=== PATIENT | female | born 1990 | race Caucasian/White ===

== ENCOUNTER → 2019-05-08 | Outpatient (CLI) | payer SELFPAY | END | disposition home or self-care (01) | PROVIDERS: Visit Provider Obstetrics & Gynecology | DX: Z12.4 Encounter for screening for malignant neoplasm of cervix (principal); Z11.3 Encounter for screening for infections with a predominantly sexual mode of transmission; Z34.81 Encounter for supervision of other normal pregnancy, first trimester ==

== ENCOUNTER → 2019-06-06 10:24 | Outpatient (CLI) | payer SELFPAY ==
[2019-06-06 10:51] LABS: Absolute Lymphocyte Count 2.02 X10^3/uL (0.83-4.51); Basophil# 0.01 X10^3/uL; Basophil% 0.2 % (0-1); Eosinophil# 0.05 X10^3/uL; Eosinophils% 0.8 % (0-5); Hematocrit 36.2 % (37-47); Hemoglobin 11.4 g/dL (12.0-15.0); Lymphocyte # 2.02 X10^3/ul (4.0); Lymphocyte % 31.3 % (19-41); Mean Corp Hgb Conc 31.5 g/dL (32-36); Mean Corpuscular Hgb 23.2 pg (27.0-32.0); Mean Corpuscular Volume 73.6 fL (81-99); Mean Platelet Vol. 10.1 fl (6.2-12.0); Monocyte# 0.34 X10^3/uL; Monocyte% 5.3 % (0-10); NRBC Flagged by Analyzer 0 % (0-5); Neutrophil # 4.03 X10^3/uL (2.7-7.7); Neutrophil % 62.2 % (47-70); Platelet Count 249 K/mm3 (150-450); RBC Distribution Width CV 15.8 % (11.6-14.6); RBC Distribution Width SD 41.1 fl (35.1-43.9); Red Blood Count 4.92 M/mm3 (4.2-5.4); White Blood Count 6.5 K/mm3 (4.4-11.0)
[2019-06-06 10:52] LABS: Color, Urine Yellow (Yellow); Glucose, Dipstick Normal (Normal); Ketone-Dipstick Negative (Negative); Leukocyte Esterase-Dipstick Negative /ul (Negative); Nitrite-Dipstick Negative (Negative); Occult Blood-Urine Negative /ul (Negative); Protein-Dipstick Negative (Negative); Specific Gravity, Urine 1.005 (1.002-1.030); Urine Bilirubin Dipstick Negative (Negative); Urine Clarity Clear (Clear); Urine Urobilinogen Normal (Normal)
[2019-06-06 11:11] LABS: Amphetamine Urine VISTA NEGATIVE (<1000 ng/mL); Barbiturate Urine VISTA NEGATIVE (< 200 ng/mL); Benzodiazepine Urine VISTA NEGATIVE (< 200 ng/mL); Cocaine Urine VISTA NEGATIVE (< 300 ng/mL); Ecstacy Urine VISTA NEGATIVE (< 500 ng/mL); Methadone Urine VISTA NEGATIVE (< 300 ng/mL); PCP Urine VISTA NEGATIVE (< 25 ng/mL); THC Urine VISTA NEGATIVE (< 50 ng/mL); Vista UDS pH Range 6
[2019-06-06 12:28] LABS: HIV - WCH Non-Reactive (Nonreactive); Hepatitis B Surface Antigen Non-Reactive (Nonreactive); Hepatitis C Antibody Non-Reactive (Nonreactive)
[2019-06-13 02:09] LABS: Prenatal RPR NONREACTIVE (NONREACTIVE)
== END ==
PROVIDERS: Visit Provider Obstetrics & Gynecology
DX: Z34.81 Encounter for supervision of other normal pregnancy, first trimester (principal)
CPT/HCPCS: 36415; 80307; 81002; 82306; 84443; 85025; 86703; 86762; 86803; 87340

== ENCOUNTER → 2019-10-02 09:54 | Outpatient (CLI) | payer SELFPAY ==
[2019-10-02 11:35] LABS: Glucose Challenge Gest 1H 50g 99 mg/dL (70-140)
[2019-10-02 11:36] LABS: Hematocrit 33.3 % (37-47); Hemoglobin 10.4 g/dL (12.0-15.0); Mean Corp Hgb Conc 31.2 g/dL (32-36); Mean Corpuscular Hgb 25.4 pg (27.0-32.0); Mean Corpuscular Volume 81.4 fL (81-99); Platelet Count 270 K/mm3 (150-450); RBC Distribution Width CV 15.5 % (11.6-14.6); RBC Distribution Width SD 45.8 fl (35.1-43.9); Red Blood Count 4.09 M/mm3 (4.2-5.4); White Blood Count 8.8 K/mm3 (4.4-11.0)
[2019-10-02 11:44] LABS: Vitamin D,25 Hydroxy 33.9 ng/mL
== END ==
PROVIDERS: Visit Provider Obstetrics & Gynecology
DX: Z34.83 Encounter for supervision of other normal pregnancy, third trimester (principal)
CPT/HCPCS: 36415; 82306; 82950; 85027

== ENCOUNTER → 2019-11-22 | Outpatient (CLI) | payer SELFPAY | END | disposition home or self-care (01) | LOC: LABSPEC 10:27 | PROVIDERS: Visit Provider Obstetrics & Gynecology | DX: Z36.85 Encounter for antenatal screening for Streptococcus B (principal) | CPT/HCPCS: 87081 ==

== ENCOUNTER → 2019-12-04 10:00 | Outpatient (CLI) | payer MEDICAID, SELFPAY | PROVIDERS: PCP Family Medicine; Referring Provider Student in an Organized Health Care Education/Training Program; Visit Provider Student in an Organized Health Care Education/Training Program | DX: Z11.59 Encounter for screening for other viral diseases (principal) | CPT/HCPCS: 87635; C9803; U0003 ==

== ENCOUNTER 2019-12-10 09:25 | Inpatient (IN) | payer MEDICAID, SELFPAY ==
[2019-12-10] VITALS (21 sets, daily range): BP systolic 90–105; BP diastolic 36–73; PULSE 58–83; RESP 16–18; TEMP 36.1–36.8; O2SAT 95–100; BMI 40.9
[2019-12-10] MEDS: Acetaminophen 500 MG Tablet 1000 MG PO ×3 (09:54→23:53)
[2019-12-10] MEDS: Lactated Ringers 1,000 ML 999 ML IV (10:10)
[2019-12-10 10:36] LABS: Absolute Lymphocyte Count 1.74 X10^3/uL (0.83-4.51); Absolute Neutrophil Count 6.3 X10^3/uL (2.0-7.7); Basophil# 0.02 X10^3/uL; Basophil% 0.2 % (0-1); Eosinophil# 0.04 X10^3/uL; Eosinophils% 0.5 % (0-5); Hematocrit 35.4 % (37-47); Hemoglobin 11.5 g/dL (12.0-15.0); Lymphocyte # 1.74 X10^3/ul (4.0); Lymphocyte % 20.4 % (19-41); Mean Corp Hgb Conc 32.5 g/dL (32-36); Mean Corpuscular Hgb 26.7 pg (27.0-32.0); Mean Corpuscular Volume 82.3 fL (81-99); Mean Platelet Vol. 10.8 fl (6.2-12.0); Monocyte# 0.36 X10^3/uL; Monocyte% 4.2 % (0-10); NRBC Flagged by Analyzer 0 % (0-5); Neutrophil # 6.32 X10^3/uL (2.7-7.7); Neutrophil % 74.2 % (47-70); Platelet Count 191 K/mm3 (150-450); RBC Distribution Width CV 16.6 % (11.6-14.6); RBC Distribution Width SD 49.6 fl (35.1-43.9); White Blood Count 8.5 K/mm3 (4.4-11.0)
[2019-12-10] MEDS: Lactated Ringers 1,000 ML 150 ML IV (11:11)
--- NOTE | 2019-12-10 11:14 | NURSING ---
This assessment is prior to scheduled csection assessment of patient. FHR doppler on assessment 148BPM.
[2019-12-10] MEDS: Sodium Citrate/Citric Acid 30 ML UDC PO (11:54)
[2019-12-10] MEDS: Cefazolin 2 GM in 0.9% Normal Saline 100 ML IV (12:08)
--- NOTE | 2019-12-10 12:15 | PCM.HP.OB ---
- Problem List (1) 39 weeks gestation of Status: Acute History Date of Admission: 12/10/19 Final MAYRA: 12/17/19 Final MAYRA Source: US <20 weeks Gestational age: 41 Weeks and 6 Days History of this : This is a 29 year-old, G [], P [], at 39 weeks gestational age. Surgical History: Surgical History (Last Updated 12/10/19 @ 12:[address] Sayra Hobbs MD) Previous section Z98.891 Allergies No Known Allergies Allergy (Verified 12/10/19 09:36) Home Medications: Home Medications Aspirin [Aspirin EC] 81 mg PO DAILY 12/10/19 Vit No.130/Iron/Folic [ Tablet] 1 ea PO DAILY 12/10/19 Smoking Status: Never smoker Alcohol: None History Past Pregnancies: Past Pregnancies Delivery Date Name GA/ Weeks Outcome Route Wt Sex Labor Length Anesthesia Delivery Location FOB 11/2015 42 Arrest of descent, PPH, PRBC 8lb9oz M 26 Epidural [facility] Labs: Mom's Problem List Problem Status Onset Code 39 weeks gestation of Acute Z3A.39 Mom's Labs & Results 12/10/19 12/10/19 10:10 10:10 WBC 8.5 RBC 4.30 Hgb 11.5 L Hct 35.4 L MCV 82.3 MCH 26.7 L MCHC 32.5 RDW Std Deviation 49.6 H RDW Coeff of Bubba 16.6 H Plt Count 191 MPV 10.8 Immature Gran % (Auto) 0.500 Neut % (Auto) 74.2 H Lymph % (Auto) 20.4 [place] % (Auto) 4.2 Eos % (Auto) 0.5 Baso % (Auto) 0.2 Absolute Neuts (auto) 6.3 Absolute Lymphs (auto) 1.74 Nucleated RBC % 0 Blood Type O POSITIVE Antibody Screen NEGATIVE Course Did the patient receive Yes care? Labs Blood Type: O RH: POSITIVE RPR/VDRL/Syphilis Nonreactive Rubella status Immune HbSAg Negative Date Done: 06/06/19 Chlamydia Negative Gonorrhea Negative HIV/AIDS Non-Reactive Group B Strep: Negative Current Obstetrical History Gestational Diabetes No Incompetent Cervix No Infertility No IUGR No Macrosomia No Hypertension/Pre-eclampsia No Placenta Previa/Abruption No PTL/PROM No Uterine anomaly No Oligohydramnios No Polyhydramnios No Multiple gestation No Past Medical History Asthma No Diabetes No Hypertension No Heart disease No Mitral valve prolapse No Neurologic/Seizure disorder/ No Migraines Kidney disease No Liver disease No Varicosities No Clotting disorders/Hx of DVT No Thyroid Dysfunction No Other medical diseases No Psychiatric disorders No Major trauma No Abnormal PAP smear No Sleep apnea No Mammogram in the last 2 years No Social History Marital Status: Alleged father Garrick Hx Smoking No Smoking Status Never smoker Expected Delivery Method: Scheduled Section Number of Visits: 11 Physical Exam Vitals: Vital Signs Temp Pulse Resp BP Pulse Ox 97.2 F L 83 16 105/69 95 12/10/19 10:39 12/10/19 10:39 12/10/19 10:39 12/10/19 10:39 12/10/19 10:39 General: Alert, Oriented x3, Cooperative, No apparent distress HEENT: Atraumatic, Normocephalic Cardiovascular: Regular rate, Regular Rhythm, Normal S1, Normal S2 Lungs: Normal air movement Abdomen: Soft, Non Tender, Gravid Neurological: Neuro grossly intact Presentation: Cephalic Assessment/Plan All Active Problems 39 weeks gestation of (Acute) This is a 29 year-old, G [2], P [1], at 39 weeks gestational age. proceed with repeat as planned
--- NOTE | 2019-12-10 13:20 | PCM.OPRPT ---
Problem List (1) 39 weeks gestation of Status: Acute Delivery Classification: Scheduled Final MAYRA: 12/17/19 Gestational age: 39 Weeks and 0 Days industrial designer: Marly Ortiz Type of Anesthesia:: Spinal Date of Procedure: 12/10/19 Pre-Operative Diagnosis: 39 weeks gestation, prior Post-Operative Diagnosis: 39 weeks gestation, prior , right uterine hematoma Indications: 29yo @ 39 wga presents for scheduled repeat . Procedural r/b/i/a reviewed. Consents signed and patient desired to proceed. Indications for : Repeat Elective Description of Procedure: Procedure: 1. Low transverse section 2. Lysis of adhesions The patient was taken to the operating room and spinal analgesia was administered. She is placed in a dorsal supine position with left lateral tilt. The perineum and abdomen were prepped and draped in sterile fashion. And the spinal was found to be adequate. A Pfannenstiel incision was made using a scalpel and brought down to incise the subcutaneous tissue and rectus fascia at the midline. Subcutaneous tissue was bluntly dissected off the fascia laterally. The fascial incision was dissected laterally and cephalad using curved Mo scissors. The superior leaflet of the rectus fascia was grasped using Imani clamps and bluntly dissected and sharply dissected from the underlying rectus muscle. In a similar fashion the inferior rectus fascia was dissected from the underlying muscle. The rectus muscles were bluntly at the midline. The peritoneum was identified and entered [sharply]. The bladder blade was placed into the abdomen and the vesicouterine peritoneal fold identified. The fold was incised and a bladder flap created. Bladder blade was then repositioned to the abdomen. A low transverse hysterotomy was made using the [Metzenbaum scissors] to level of the membranes. The hysterotomy was extended bluntly cephalad and caudad. The membranes were then ruptured revealing clear fluid. The head was elevated and brought to the level of the hysterotomy and the infant delivered revealing vigorous [male] infant. The cord was doubly clamped and cut after 30 seconds. The was passed to awaiting [nursery personnel]. The placenta was [expressed] from the uterus and appeared intact on inspection. The uterus was cleared of debris. The hysterotomy was then repaired using 0 Vicryl running lock suture. A second imbricating layer was also placed for additional hemostasis. The bladder blade was removed. The anterior cul-de-sac was cleared of debris. The peritoneum and rectus muscles were reapproximated using 2-0 Vicryl running suture. The rectus fascia was closed using 0 Vicryl running suture. The subcutaneous tissue was sponge irrigated and small capillary bleeding controlled using the Bovie device. The subcutaneous tissue was reapproximated using 2-0 Vicryl. The skin was closed using 4-0 Monocryl subcuticularly. This was followed by Cavilon and a Mepilex occlusive dressing was placed over the incision. The fundus was firm. The patient was then transferred to the recovery room without complication. Sponge, instrument, and needle counts were correct ?2. Amniotic Membrane Rupture Type: Artificial Amniotic Fluid Description: Clear Placenta Disposition: [facility] Drain: Rosario to straight drain Fluids Replaced: 900 ml Cord Entanglement: None Nuchal Cord Compression: Without compression Esitmated Blood Loss (ml): 800 ml Gender: Male (1 minute): 8 (5 minute): 9 Delayed cord clamping: Yes Antibiotic Given: Ancef 2 grams IV x1 Pt instructed on risks of surgery: Bleeding, Anesthesia Risks, Infection, Need for Future C-Sections, Injury to surrounding structure(s) including bowel and bladder Complications: None - Admit VTE Documentation VTE Present on Admission: No VTE Mechan Device Prophylaxis: SCD's VTE Pharm Prophylaxis ordered?: No
[2019-12-10] MEDS: Methylergonovine 0.2 MG/ML Ampul IM (14:11)
[2019-12-10] MEDS: Oxytocin 30 units/NS 500 ml 30 UNITS/500 ML IV.SOLN 334 UNITS IV (14:15)
[2019-12-10] MEDS: Lactated Ringers 1,000 ML 100 ML IV (18:20)
[2019-12-10] MEDS: Ketorolac 30 MG/ML Syringe IV ×2 (18:34→23:53)
[2019-12-10] MEDS: 0.9% Saline Lock 10 ML Syringe IV ×2 (18:37→23:54)
[2019-12-10] MEDS: Heparin Injection (Vial) 5,000 UNIT/ML VIAL 5000 UNIT SC (21:04)
[2019-12-11] VITALS (12 sets, daily range): BP systolic 89–105; BP diastolic 40–61; PULSE 67–86; RESP 14–18; TEMP 36.1–37.1; O2SAT 97–99
[2019-12-11 04:53] LABS: Mean Corp Hgb Conc 32.4 g/dL (32-36); Mean Corpuscular Hgb 27.4 pg (27.0-32.0); Mean Corpuscular Volume 84.6 fL (81-99); Mean Platelet Vol. 10.3 fl (6.2-12.0); Platelet Count 157 K/mm3 (150-450); RBC Distribution Width CV 16.5 % (11.6-14.6); RBC Distribution Width SD 51.1 fl (35.1-43.9); Red Blood Count 4.02 M/mm3 (4.2-5.4); White Blood Count 9.1 K/mm3 (4.4-11.0)
[2019-12-11] MEDS: Acetaminophen 500 MG Tablet 1000 MG PO ×3 (05:49→18:17)
[2019-12-11] MEDS: Ketorolac 30 MG/ML Syringe IV ×2 (05:50→12:13)
[2019-12-11] MEDS: 0.9% Saline Lock 10 ML Syringe IV ×2 (05:50→12:16)
--- NOTE | 2019-12-11 05:59 | PN.OBGYN_ITS ---
Patient Problems: Active and Suspected Problems 39 weeks gestation of (Acute) Subjective: POD#1 Objective: Patient feeling well. Lochia minimal. - Physical Exam Vitals/I&O's: Vital Signs Temp Pulse Resp BP Pulse Ox 98.7 F 70 16 92/54 L 98 12/11/19 04:35 12/11/19 04:35 12/11/19 04:35 12/11/19 04:35 12/11/19 04:35 Oxygen Delivery Method Room Air Weight: 101.5 kg Body Mass Index (BMI) 40.9 Intake and Output for Last 24 Hours 12/09/19 12/10/19 12/11/19 23:59 23:59 23:59 Intake Total 1922.5 / 1922.5 891.67 / 891.67 Output Total 550 / 550 400 / 400 Balance 1372.5 / 1372.5 491.67 / 491.67 General: Alert, Oriented x3, Cooperative, No apparent distress HEENT: Atraumatic, Normocephalic Lungs: Normal air movement Abdomen: Soft, Non Tender, Non-Distended - Uterus 2cm below umbilicus, dressing clean/dry Extremities: No edema Psych/Mental Status: Normal Affect, Appropriate Laboratory Results 12/10/19 10:10: WBC 8.5, RBC 4.30, Hgb 11.5 L, Hct 35.4 L, MCV 82.3, MCH 26.7 L, MCHC 32.5, RDW Std Deviation 49.6 H, RDW Coeff of Bubba 16.6 H, Plt Count 191, MPV 10.8, Immature Gran % (Auto) 0.500, Neut % (Auto) 74.2 H, Lymph % (Auto) 20.4, [place] % (Auto) 4.2, Eos % (Auto) 0.5, Baso % (Auto) 0.2, Absolute Neuts (auto) 6.3, Absolute Lymphs (auto) 1.74, Nucleated RBC % 0 12/10/19 10:10: Blood Type O POSITIVE, Antibody Screen NEGATIVE 12/11/19 04:45: WBC 9.1, RBC 4.02 L, Hgb 11.0 L, Hct 34.0 L, MCV 84.6, MCH 27.4, MCHC 32.4, RDW Std Deviation 51.1 H, RDW Coeff of Bubba 16.5 H, Plt Count 157, MPV 10.3 Current Medications Acetaminophen (Tylenol) 1,000 mg PO Q6 [facility] Last Admin: 12/11/19 05:49 Dose: 1,000 mg Documented by: Bisacodyl (Dulcolax) 10 mg RECTAL UD PRN PRN Reason: If no BM Dibucaine (Dibucaine) 1 applic TOPICAL TID PRN PRN; Protocol PRN Reason: Discomfort Diphenhydramine HCl (Benadryl) 25 mg PO Q6H PRN PRN PRN Reason: ITCHING Stop: 12/11/19 13:34 Heparin Sodium (Porcine) (Heparin Na) 5,000 unit SC Q12 [facility] Last Admin: 12/10/19 21:04 Dose: 5,000 unit Documented by: Hydrocortisone (Hytone) 1 applic TOPICAL TID PRN PRN; Protocol PRN Reason: Discomfort Naloxone HCl 4 mg/ Dextrose 504 mls @ 0 mls/hr IV .Q0M PRN; Protocol PRN Reason: To maintain Resp. rate >10 Ibuprofen (Motrin) 600 mg PO Q6 [facility] Ketorolac Tromethamine (Toradol (Bkc)) 30 mg IV Q6 [facility] Stop: 12/11/19 12:01 Last Admin: 12/11/19 05:50 Dose: 30 mg Documented by: Methylergonovine Maleate (Methergine) 0.2 mg IM X1 PRN PRN Reason: Excess bleeding/uterine atony Last Admin: 12/10/19 14:11 Dose: 0.2 mg Documented by: Nalbuphine HCl (Nubain) 5 mg IV Q3H PRN PRN PRN Reason: ITCHING Stop: 12/11/19 13:34 Naloxone HCl (Narcan) 0.02 mg IV Q1M PRN PRN Reason: RR< 10 AND PT UNRESPONSIVE Ondansetron HCl (Zofran) 4 mg IV Q4H PRN PRN PRN Reason: Nausea Oxycodone HCl (Oxyir) 5 - 10 mg PO Q4H PRN PRN PRN Reason: Pain Score 4-10/10 Prochlorperazine Edisylate (Compazine Iv) 10 mg IV Q6H PRN PRN PRN Reason: NAUSEA Senna/Docusate Sodium (Senokot-S, Gabriela-Colace) 1 - 2 tablet PO DAILY [facility] Simethicone (Mylicon) 80 mg PO PCHS PRN PRN Reason: Indigestion/Stomach pain Sodium Chloride () 5 - 15 ml IV UD PRN PRN Reason: SALINE FLUSH Last Admin: 12/11/19 05:50 Dose: 10 ml Documented by: Medical Necessity - Tobacco Use Smoking Status: Never smoker Assessment/Plan All Active Problems 39 weeks gestation of (Acute) 29 yo POD#1 s/p repeat section. H/H stable. , going well. Expect discharge POD#2
[2019-12-11] MEDS: Senna/Docusate Sodium 1 Tablet PO (09:42)
[2019-12-11] MEDS: Heparin Injection (Vial) 5,000 UNIT/ML VIAL 5000 UNIT SC ×2 (09:44→21:53)
--- NOTE | 2019-12-11 12:29 | NURSING ---
voided, but missed hat. Pt states she feels bladder emptied. Urine noted in toilet.
[2019-12-11] MEDS: Ibuprofen 600 MG Tablet PO (18:16)
[2019-12-12] MEDS: Acetaminophen 500 MG Tablet 1000 MG PO ×3 (00:17→13:11)
[2019-12-12] MEDS: Ibuprofen 600 MG Tablet PO ×3 (00:18→13:10)
[2019-12-12 01:10] VITALS: BP 106/60; PULSE 69; RESP 14; TEMP 36.1; O2SAT 96
--- NOTE | 2019-12-12 07:02 | PN.OBGYN_ITS ---
Patient Problems: Active and Suspected Problems 39 weeks gestation of (Acute) Subjective: Postoperative Objective: No overnight complaints. Pain well controlled. Denies CP, SOB, N/V - Physical Exam Vitals/I&O's: Vital Signs Temp Pulse Resp BP Pulse Ox 97 F L 69 14 106/60 96 12/12/19 01:10 12/12/19 01:10 12/12/19 01:10 12/12/19 01:10 12/12/19 01:10 Oxygen Delivery Method Room Air Weight: 223 lb 12.307 oz Body Mass Index (BMI) 40.9 Intake and Output for Last 24 Hours 12/10/19 12/11/19 12/12/19 23:59 23:59 23:59 Intake Total 1922.5 / 1922.5 891.67 / 891.67 Output Total 550 / 550 400 / 400 Balance 1372.5 / 1372.5 491.67 / 491.67 General: Alert, Oriented x3, Cooperative HEENT: Atraumatic, Normocephalic Oral: Moist Mucosa Neck: Supple Abdomen: Soft, Non Tender, Gravid - fundus firm and at umbilicus Psych/Mental Status: Normal Affect, Appropriate, Alert and oriented to time, p lace, person, mood and affect Current Medications Acetaminophen (Tylenol) 1,000 mg PO Q6 [facility] Last Admin: 12/12/19 05:55 Dose: 1,000 mg Documented by: Bisacodyl (Dulcolax) 10 mg RECTAL UD PRN PRN Reason: If no BM Dibucaine (Dibucaine) 1 applic TOPICAL TID PRN PRN; Protocol PRN Reason: Discomfort Heparin Sodium (Porcine) (Heparin Na) 5,000 unit SC Q12 [facility] Last Admin: 12/11/19 21:53 Dose: 5,000 unit Documented by: Hydrocortisone (Hytone) 1 applic TOPICAL TID PRN PRN; Protocol PRN Reason: Discomfort Naloxone HCl 4 mg/ Dextrose 504 mls @ 0 mls/hr IV .Q0M PRN; Protocol PRN Reason: To maintain Resp. rate >10 Ibuprofen (Motrin) 600 mg PO Q6 [facility] Last Admin: 12/12/19 05:53 Dose: 600 mg Documented by: Methylergonovine Maleate (Methergine) 0.2 mg IM X1 PRN PRN Reason: Excess bleeding/uterine atony Last Admin: 12/10/19 14:11 Dose: 0.2 mg Documented by: Naloxone HCl (Narcan) 0.02 mg IV Q1M PRN PRN Reason: RR< 10 AND PT UNRESPONSIVE Ondansetron HCl (Zofran) 4 mg IV Q4H PRN PRN PRN Reason: Nausea Oxycodone HCl (Oxyir) 5 - 10 mg PO Q4H PRN PRN PRN Reason: Pain Score 4-10/10 Prochlorperazine Edisylate (Compazine Iv) 10 mg IV Q6H PRN PRN PRN Reason: NAUSEA Senna/Docusate Sodium (Senokot-S, Gabriela-Colace) 1 - 2 tablet PO DAILY [facility] Last Admin: 12/11/19 09:42 Dose: 2 tablet Documented by: Simethicone (Mylicon) 80 mg PO PCHS PRN PRN Reason: Indigestion/Stomach pain Sodium Chloride () 5 - 15 ml IV UD PRN PRN Reason: SALINE FLUSH Last Admin: 12/11/19 12:16 Dose: 10 ml Documented by: Medical Necessity - Tobacco Use Smoking Status: Never smoker Assessment/Plan All Active Problems 39 weeks gestation of (Acute) POD#2, pain well controlled on tylenol and IBU. Declines opiods home going. Breast feeding. Declines control. Okay to d/c home
--- NOTE | 2019-12-12 07:04 | DCINST_ITS ---
Discharge Diet: No Restrictions Discharge Activity: Return to Normal Activity, May not drive while taking narcotic pain medications., May Shower May resume sexual activity in: 2 weeks Weight Bearing Status: Weight bearing as tolerated Lifting Restrictions: do not lift greater than 25 pounds for 3 weeks Call your doctor if your incision/area has: Foul Smelling Discharge Call your doctor if you observe: Fever of 101 or Higher, Shortness of breath, Chest pain Suture Line Care: Avoid Pulling/Pushing Remove Dressing in (days):: 1 - home going Cleanse incision/area with: Soap & Water Additional Instructions: If you experience any of the following, contact your healthcare provider. * Bleeding that soaks a pad every hour for 2 hours * Fever 100.4 or higher * Unrelieved incision or abdominal pain * Swelling, redness, discharge or bleeding from your incision or episiotomy site * Your incision begins to separate * Problems urinating (including inability to urinate or burning while urinating). * Visual changes * Severe headache * Flu-like symptoms * Pain or redness in one of both of your breasts * Pain, warmth, tenderness or swelling in your legs, especially the calf area * Frequent nausea and vomiting * Symptoms of depression or anxiety If you experience any of the following, call 911 or go to the nearest Emergency Room. * Chest pain * Problems breathing * Seizure activity * Partial or complete paralysis of a body part, slurred speech, weakness or drooping of the face, or a sudden inability to walk or hold your balance Allergies/Adverse Reactions: Allergies No Known Allergies Allergy (Verified 12/10/19 09:36) Medications to take at Discharge Aspirin [Aspirin EC] 81 mg PO DAILY 12/10/19 Vit No.130/Iron/Folic [ Tablet] 1 ea PO DAILY 12/10/19 Follow-Up: Call to make an appointment with your doctor for an incision check in 1-2 weeks. You will also need a 6 week post- follow up appointment. Test results from this visit will be discussed in further detail at your follow- up appointment, if applicable. Please Follow Up With: Sayra Wray MD When: 6 weeks Primary Care Physician: Jean Castro MD [Primary Care Provider] -
[2019-12-12 09:02] VITALS: BP 98/57; PULSE 80; RESP 16; TEMP 36.4; O2SAT 98
[2019-12-12] MEDS: Heparin Injection (Vial) 5,000 UNIT/ML VIAL 5000 UNIT SC (09:17)
[2019-12-12] MEDS: Senna/Docusate Sodium 1 Tablet PO (09:18)
[2019-12-12 13:21] VITALS: BP 115/77; PULSE 79; RESP 16; TEMP 36.7; O2SAT 97
== END 2019-12-12 15:45 | disposition home or self-care (01) | DRG 540 ==
PROVIDERS: Admitting Provider Obstetrics & Gynecology; PCP Family Medicine; Referring Provider Obstetrics & Gynecology; Visit Provider Obstetrics & Gynecology
PROC: 10D00Z1 Extraction of Products of Conception, Low, Open Approach (ICD-10-PCS; CPT 59514; principal; 2019-12-10 11:45)
DX: O34.211 Maternal care for low transverse scar from previous cesarean delivery (principal); O71.7 Obstetric hematoma of pelvis; Z3A.39 39 weeks gestation of pregnancy; Z37.0 Single live birth; Z79.82 Long term (current) use of aspirin; Z87.59 Personal history of other complications of pregnancy, childbirth and the puerperium
CPT/HCPCS: 85025; 85027; 86850; 86900; 86901; 99218; 99251; J7120; A4216; G0378; G0463; J2405

== ENCOUNTER → 2022-10-03 | Outpatient (CLI) | payer MEDICAID, SELFPAY ==
[2022-10-07 10:09] LABS: HPV APTIMA, High Risk Negative (Negative)
== END | disposition home or self-care (01) ==
LOC: LABSPEC 14:48
PROVIDERS: PCP Family Medicine; Visit Provider Student in an Organized Health Care Education/Training Program
DX: Z12.4 Encounter for screening for malignant neoplasm of cervix (principal)
CPT/HCPCS: 87624; 88175; G0145